=== PATIENT | male | born 1985 | race Caucasian/White ===

== ENCOUNTER → 2022-04-24 14:31 | Outpatient (BNVA) | payer SELFPAY | PROVIDERS: PCP Nurse Practitioner Family; Visit Provider Physician Assistant Medical | DX: Z02.79 Encounter for issue of other medical certificate (principal) ==

== ENCOUNTER 2023-06-23 21:33 | Emergency (ER) | payer OTHER, SELFPAY ==
[2023-06-23 21:43] VITALS: BP 152/83; PULSE 93; RESP 17; TEMP 36.6; O2SAT 98
[2023-06-23 22:04] VITALS: BP 147/87; PULSE 90; O2SAT 97; BMI 22.5
--- NOTE | 2023-06-23 22:06 | ED.OVERDOSE ---
HPI - Overdose General Chief Complaint: Overdose Stated Complaint: VOMITING OPIOID INTOX Time Seen by Provider: 06/23/23 21:47 Source: patient Mode of arrival: EMS Limitations: no limitations History of Present Illness HPI Narrative: Patient brought by EMS for possible overdose patient does not take drugs took half tablet of Percocet from the street was feeling diaphoretic and pale and vomiting no shortness of breath no loss of consciousness no abdominal pain Related Data Allergies Allergy/AdvReac Type Severity Reaction Status Date / Time No Known Allergies Allergy Verified 06/23/23 22:23 Review of Systems Review of Systems: Yes all other systems are reviewed and are negative [facility] Social History Social History Advance Directives: No Advance Directives Information Provided: No Physical Exam Vital Signs: Vital Signs: Last Vital Signs Temp 97.8 F 06/23/23 21:43 Pulse 93 06/23/23 21:43 Resp 17 06/23/23 21:43 BP 152/83 H 06/23/23 21:43 Pulse Ox 98 06/23/23 21:43 O2 Del Method Room Air 06/23/23 21:43 BMI result Body Mass Index 22.5 Appearance: Alert. Oriented X3. No acute distress. Eyes: PERRLA, No Nystagmus ENT: Pharynx normal. Oral Mucosa moist Neck: Normal inspection. Neck supple. CVS: Normal heart rate and rhythm. Pulses normal. Respiratory: No respiratory distress. Equal air entry bilateral, no wheezing/rales/rhonchi Abdomen: Soft and nontender. Bowel sounds are present, no mass palpable, no CVA tenderness Skin: Skin warm and dry. Normal skin color. Normal skin turgor. Extremities: No lower extremity edema. No calf tenderness Neuro: Oriented X 3. No motor deficit. No sensory deficit.No cerebellar signs , cranial nerves II-XII intact Medications Administered Discontinued Medications Generic Name Dose Route Start Last Admin Trade Name Freq PRN Reason Stop Dose Admin Ondansetron HCl 4 mg 06/23/23 22:23 06/23/23 23:02 Ondansetron Odt 4 Mg Tab.Rapdis TRANSLINGU 06/23/23 22:24 4 mg ONCE ONE Administration Medical Decision Making Medical Decision Making MDM Narrative: Patient feeling much better after taking p.o. fluids will discharge patient home does not want to give us urine sample Discharge Plan Discharge Clinical Impression: Poisoning by opiate or related narcotic Patient Disposition: Home, Self-Care Instructions: Opioid Use Disorder (ED) Additional Instructions: Stop using Percocet and opiates Follow-up with detox Interventions: ED Discharge Assessment Last Done: 06/23/23 23:33 Discharge Date/Time: 06/23/23 23:33
[2023-06-23] MEDS: Ondansetron ODT 4 MG TAB.RAPDIS TRANSLINGU (23:02)
== END 2023-06-23 23:33 | disposition home or self-care (01) ==
PROVIDERS: Emergency Provider Internal Medicine
DX: T40.2X1A Poisoning by other opioids, accidental (unintentional), initial encounter (principal); Y92.9 Unspecified place or not applicable
CPT/HCPCS: 99282; 99283

== ENCOUNTER 2024-04-13 22:55 | Emergency (ER) | payer OTHER, SELFPAY ==
[2024-04-13 22:59] VITALS: BP 131/86; PULSE 73; RESP 18; TEMP 36.1; O2SAT 100; BMI 25.0
[2024-04-14] MEDS: Lidocaine HCl 1%/Epi 1:100,000 10 ML VIAL INFILTRATI (00:22)
--- NOTE | 2024-04-14 00:44 | ED.GENADULT ---
HPI - General Adult General Chief complaint: Fall Stated complaint: head lac s/p fall Time Seen by Provider: 04/14/24 00:10 Source: patient, RN notes reviewed and old records reviewed Mode of arrival: ambulatory Limitations: no limitations History of Present Illness ED Provider: Mikel HPI narrative: 38-year-old male presents for evaluation of a facial laceration. Patient reports that he tripped over a piece of wood in his garage. He is not sure if he hit his head on the piece of wood or on the concrete floor He sustained a laceration above his right eyebrow There was no loss of consciousness. The patient denies any pain except for mild pain the area of the laceration Denies any neck pain, chest pain. And denies any blurry vision, lightheadedness, dizziness, nausea vomiting No other complaints or concerns Related Data Allergies Allergy/AdvReac Type Severity Reaction Status Date / Time No Known Allergies Allergy Verified 04/13/24 23:02 Review of Systems Constitutional: Constitutional: Denies body ache(s), Denies chills and Denies headache(s) Eyes: Eyes: Denies blurry vision ENT: Denies headache(s) Cardiovascular: Cardiovascular: Denies chest pain, Denies syncope and Denies dyspnea Respiratory: Respiratory: Denies dyspnea Integumentary/Breasts: Skin/Breast: Reports wounds Neurologic: Denies syncope and Denies headache(s) PMFSH Social History Social History Advance Directives: No Advance Directives Information Provided: No Do you have a plan to hurt others: No Plan Physical Exam ED Vital Signs: Vital Signs - 24 hr 04/13/24 22:59 Temperature 97 F Pulse Rate 73 Respiratory Rate 18 Blood Pressure 131/86 Pulse Oximetry 100 Oxygen Delivery Method Room Air BMI result Body Mass Index 25.0 Const General: healthy appearing, comfortable, no acute distress, alert and awake Nutritional Appearance: well nourished Orientation/consciousness: patient oriented x3 Eyes Eyelids: Yes eyelids normal Conjunctivae: conjunctivae normal Sclerae: sclerae normal Corneas: corneas normal Pupils: Equal, round and reactive pupils present EOM: EOMs intact bilaterally Resp Effort & Inspection: normal respiratory effort, able to speak in complete sentences and not labored Skin Other: You 0.5 cm linear laceration above the right eyebrow. There is some fatty tissue exposed. There is minimal active bleeding General skin exam: elasticity normal Neuro General: patient oriented x3 Cranial nerves: Yes CN's II-XII intact bilaterally, Yes Equal, round and reactive pupils present and Yes Bilaterally intact EOM present Cognition (Neuro): normal cognition Extrem Other: Moving all extremities well without any obvious deformities Medications Administered Discontinued Medications Generic Name Dose Route Start Last Admin Trade Name Carlene PRN Reason Stop Dose Admin Lidocaine/Epinephrine 10 ml 04/14/24 00:19 04/14/24 00:22 Lidocaine Hcl 1%/Epi 1:100,000 10 Ml Vial INFILTRATI 04/14/24 00:20 10 ml ONCE ONE Administration Procedures Laceration Laceration 1: Site: face Side (If applicable): right (Eyebrow) Size (cm): 2.5 Description: linear Depth: simple, single layer Local Anesthetic: lidocaine 1% and with epi Amount of anesthesia used (mL): 2 Pre-repair: wound explored, irrigated extensively and deep structures intact Skin layer closed with: nylon Size (cm): 6-0 Number of sutures: 4 Technique: simple, interrupted Medical Decision Making Medical Decision Making MDM Narrative: 38-year-old male presents for evaluation of facial laceration. This happened with blunt force trauma to the head. Did have been 5 hours prior to my evaluation. He has no neuro deficits, is suggestive of a traumatic brain injury. I discussed CT brain with the patient he declines which I feel is appropriate given the above reasons. He has not anticoagulated his responsible adult. See procedure note for wound repair, but CT imaging was ultimately deferred. He has no neck pain or C-spine tenderness. Patient declined a tetanus booster today Differential Diagnosis Differential Diagnoses: The differential diagnosis associated with the presentation includes Facial laceration Concussion Head trauma Intracranial hemorrhage Tests considered The following testing was considered but not selected: Consider CT brain and C-spine but ultimately the patient is not symptomatic of a TBI or significant cervical spine injury. These were deferred after shared decision-making Discharge Plan Discharge Clinical Impression: Facial laceration Patient Disposition: Home, Self-Care Instructions: Laceration (ED) Additional Instructions: You had 4 sutures placed today. These can be removed in 5-7 days. Keep the area clean and dry. Use ibuprofen/Tylenol for any pain Follow-up with your primary doctor Return for new or worsening symptoms Print Language: Tamazight
[2024-04-14 01:10] VITALS: BP 120/80; PULSE 68; RESP 16; TEMP 36.6; O2SAT 97
== END 2024-04-14 01:11 | disposition home or self-care (01) ==
PROVIDERS: Emergency Provider Emergency Medicine
DX: S01.111A Laceration without foreign body of right eyelid and periocular area, initial encounter (principal); W01.198A Fall on same level from slipping, tripping and stumbling with subsequent striking against other object, initial encounter; Y93.9 Activity, unspecified; Y92.015 Private garage of single-family (private) house as the place of occurrence of the external cause; Y99.9 Unspecified external cause status
CPT/HCPCS: 12011; 99282; 99284

== ENCOUNTER 2024-04-20 21:35 | Emergency (ER) | payer OTHER, SELFPAY ==
[2024-04-20 21:52] VITALS: BP 120/68; PULSE 89; RESP 17; TEMP 36.8; O2SAT 96; BMI 25.0
[2024-04-20 23:43] VITALS: BP 121/69; PULSE 68; RESP 20; TEMP 36.8; O2SAT 96
--- NOTE | 2024-04-21 00:44 | ED.GENADULT ---
HPI - General Adult General Chief complaint: Recheck/Abnormal Lab/Rx Stated complaint: needs stitches removed Time Seen by Provider: 04/21/24 00:22 Source: patient, RN notes reviewed and old records reviewed Mode of arrival: ambulatory Limitations: no limitations History of Present Illness ED Provider: Mikel HPI narrative: 38-year-old male presents for evaluation of suture removal. He was seen here 1 week ago and had 4 sutures placed to the left side of his forehead above his eyebrow. He denies any pain. He reports that the wound healed well Related Data Allergies Allergy/AdvReac Type Severity Reaction Status Date / Time No Known Allergies Allergy Verified 04/20/24 21:53 [facility] Social History Social History Advance Directives: No Advance Directives Information Provided: Yes Do you have a plan to hurt others: No Plan Physical Exam ED Vital Signs: Vital Signs - 24 hr 04/20/24 21:52 04/20/24 23:43 04/21/24 00:59 Temperature 98.2 F 98.3 F 0 F L Pulse Rate 89 68 0 L Respiratory Rate 17 20 0 L Blood Pressure 120/68 121/69 0/0 L Pulse Oximetry 96 96 0 L Oxygen Delivery Method Room Air Room Air BMI result Body Mass Index 25.0 Const General: healthy appearing, comfortable, no acute distress, alert and awake Nutritional Appearance: well nourished Orientation/consciousness: patient oriented x3 Eyes Eyelids: Yes eyelids normal Conjunctivae: conjunctivae normal Sclerae: sclerae normal Corneas: corneas normal Pupils: Equal, round and reactive pupils present EOM: EOMs intact bilaterally Skin Other: Healing wound to the right forehead. There are 4 intact sutures. There is a scab covering the area. No active bleeding, no purulence, no erythema General skin exam: no rashes or lesions noted Neuro General: patient oriented x3 Cranial nerves: Yes Equal, round and reactive pupils present and Yes Bilaterally intact EOM present Cognition (Neuro): normal cognition Medical Decision Making Medical Decision Making [facility] Narrative: 38-year-old male presents for evaluation of suture removal. Four sutures were easily removed. There was no wound dehiscence. Differential Diagnosis Differential Diagnoses: The differential diagnosis associated with the presentation includes Wound check Suture removal Laceration Acute wound Discharge Plan Discharge Clinical Impression: Encounter for removal of sutures Patient Disposition: Home, Self-Care Instructions: Stitches Removal (ED) Additional Instructions: You had 4 sutures removed today. You may apply topical antibiotic as needed Follow-up with your primary doctor Interventions: ED Discharge Assessment Last Done: 04/21/24 00:59 Discharge Date/Time: 04/21/24 01:00 Print Language: Estonian
[2024-04-21 00:59] VITALS: BP 0/0; PULSE 0; RESP 0; TEMP -17.7; TEMP 0; O2SAT 0
== END 2024-04-21 01:00 | disposition home or self-care (01) ==
PROVIDERS: Emergency Provider Emergency Medicine Emergency Medical Services
DX: Z48.02 Encounter for removal of sutures (principal); S01.81XD Laceration without foreign body of other part of head, subsequent encounter; X58.XXXD Exposure to other specified factors, subsequent encounter
CPT/HCPCS: 99283

== ENCOUNTER 2025-08-18 11:58 | Emergency (ER) | payer OTHER, MEDICAID, SELFPAY ==
--- NOTE | ~2025-08-18 | XR_ITS ---
EXAMINATION: XR LUMBOSACRAL SPINE CLINICAL INFORMATION: trauma, low back pain COMPARISON: None available. TECHNIQUE: AP and lateral views FINDINGS: No acute cortical disruption or malalignment. Endplate sclerosis at L4-5, L5-S1 and to a lesser extent L3-4. Facet joint hypertrophy at L5-S1. Small marginal osteophyte formation L3-4, L4-5 and L5-S1. S-shaped curvature of the lumbar spine. No lytic or blastic lesions. XR/XR lumbar spine 2-3V IMPRESSION: Multilevel spondylosis without acute fracture or trauma-related listhesis. Electronically signed by: Jesús Farrell MD 08/18/2025 03:37 PM EDT
--- NOTE | ~2025-08-18 | XR_ITS ---
EXAMINATION: XR ELBOW, RIGHT CLINICAL INFORMATION: trauma COMPARISON: None available. TECHNIQUE: AP, lateral, and oblique views of the right elbow. FINDINGS: There is an oblique intra-articular fracture of the radial head which appears nondisplaced. There is no dislocation. Joint spaces and alignment are normal. There is a joint effusion. No discrete soft tissue abnormalities. XR/XR elbow RT min 3V IMPRESSION: 1. Oblique nondisplaced intra-articular radial head fracture. 2. Joint effusion. Electronically signed by: Joseph Walden MD 08/18/2025 03:36 PM EDT
--- NOTE | ~2025-08-18 | XR_ITS ---
EXAMINATION: XR HAND, RIGHT CLINICAL INFORMATION: fall, pain COMPARISON: None available. TECHNIQUE: PA, lateral, and oblique views of the right hand. FINDINGS: Small marginal osteophytes are present at the MCP joints of the third and fourth digits on the ulnar side. No fracture line is identified. Scapholunate interval measures nearly 4 mm. XR/XR hand RT min 3V IMPRESSION: Scapholunate widening raises question of scapholunate ligament tear. 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 No fracture is visible. Electronically signed by: Jair Self MD 08/18/2025 12:54 PM EDT
--- NOTE | ~2025-08-18 | XR_ITS ---
EXAMINATION: XR FOREARM, RIGHT CLINICAL INFORMATION: fall, pain COMPARISON: None available. TECHNIQUE: AP and lateral views of the right forearm were obtained. FINDINGS: The bones and soft tissues are normal. No fracture. Imaged portions of the elbow and wrist are unremarkable. XR/XR forearm RT 2V IMPRESSION: Unremarkable right forearm. Electronically signed by: Jair Self MD 08/18/2025 12:52 PM EDT
--- NOTE | ~2025-08-18 | XR_ITS ---
EXAMINATION: XR WRIST, RIGHT CLINICAL INFORMATION: pain, poss abn on hand x-ray COMPARISON: Hand x-ray from the same day TECHNIQUE: PA, lateral, and oblique views of the right wrist. FINDINGS: There is slight widening of the scapholunate interval measuring 4 mm. This is similar to hand x-ray from earlier the same day. No evidence of perilunate subluxation or dislocation. Ossification seen projecting over the soft tissues of the dorsal wrist on the lateral view is questionable for trauma, uncertain age. There may be soft tissue swelling over the dorsal wrist. Probable old healed fifth metacarpal shaft fracture. XR/XR wrist RT min 3V IMPRESSION: Slightly widened scapholunate distance similar to wrist x-ray from earlier the same day. No evidence of perilunate subluxation or dislocation. Question trauma to the dorsal wrist, uncertain age. Clinical correlation recommended. Findings could be better evaluated with cross-sectional imaging if clinically warranted. Electronically signed by: Yelena Gallagher MD 08/18/2025 03:47 PM EDT
--- NOTE | ~2025-08-18 | XR_ITS ---
EXAMINATION: XR HUMERUS, RIGHT CLINICAL INFORMATION: fall, pain COMPARISON: None available. TECHNIQUE: AP and lateral views of the right humerus. FINDINGS: The bones and soft tissues are normal. No fracture. Imaged portions of the shoulder and elbow are unremarkable. XR/XR humerus RT IMPRESSION: Unremarkable right humerus. Electronically signed by: Jair Self MD 08/18/2025 12:48 PM EDT
--- NOTE | ~2025-08-18 | XR_ITS ---
EXAMINATION: XR HIP, RIGHT CLINICAL INFORMATION: pain after fall COMPARISON: None available. TECHNIQUE: AP pelvis. AP and oblique views of the right hip. FINDINGS: Bony pelvis is intact. No acute cortical disruption or malalignment, right coxofemoral joint. Mild sclerosis along the articular surface of the symphysis pubis. No lytic or blastic lesions. No soft tissue calcifications. XR/XR hip RT w PEL1V IMPRESSION: No acute fracture or dislocation, right hip. No acute fracture, bony pelvis. Electronically signed by: Jesús Farrell MD 08/18/2025 12:52 PM EDT
--- NOTE | 2025-08-18 12:09 | ED_ITS ---
HPI - General Adult General Chief complaint: Fall Stated complaint: Back Pain Work Injury 08/18/25 Time Seen by Provider: 08/18/25 14:23 History of Present Illness ED Provider: Ivy SCHMITT narrative: The patient is a 39-year-old male who is generally healthy. He was at work today. He was on a elevated platform on a ladder. He fell off the ladder, approximately 8 ft, landing on his right side. He did not his head. He and a primarily on the right arm and right hip. He has pain in his right arm, the right hip, in the right lower back. His pain is worst in the right elbow. No numbness or tingling in the hand. Related Data Previous Rx's ?Medication ?Instructions ?Recorded acetaminophen 500 mg capsule 1,000 mg (2 x 500 mg) PO Q8H PRN 08/18/25 fever or pain #14 caps ibuprofen 400 mg tablet 400 mg PO Q6H PRN pain #14 t abs 08/18/25 oxycodone 5 mg tablet 5 mg PO Q6H PRN pain #10 tab s 08/18/25 Allergies Allergy/AdvReac Type Severity Reaction Status Date / Time No Known Allergies Allergy Verified 08/18/25 12:11 Review of Systems Review of Systems: Yes all other systems are reviewed and are negative PMFSH Social History Social History Advance Directives: No Advance Directives Information Provided: No Physical Exam ED Vital Signs: Vital Signs - 24 hr 08/18/25 12:11 08/18/25 15:38 Temperature 97.6 F 98.6 F Pulse Rate 78 79 Respiratory Rate 16 18 Blood Pressure 142/68 H 126/69 Pulse Oximetry 98 99 Oxygen Delivery Method Room Air Room Air BMI result Body Mass Index 21.1 Const Other: The patient is a slim 39-year-old male who looks as though he is ordinarily reasonably healthy but who looks acutely uncomfortable. HENMT Other: No signs of trauma to the head or the face Eyes Other: No sign of trauma to the eyes Neck Other: No posterior neck pain or tenderness. No pain with range of motion of the neck. C-spine is clinically clear. Resp Effort & Inspection: normal respiratory effort Auscultation: clear to auscultation bilaterally Cardio Rate: regular rate Rhythm: regular rhythm Heart sounds: S1 normal heart sound present and S2 normal heart sound present GI Other: Abdomen is soft and nontender Back/Spine/Pelvis Other: The patient has diffuse tenderness in the lower back Skin Other: Skin is intact. Possibly some minimal swelling in the region of the right elbow. Neuro Other: The patient is awake and alert with a normal level of consciousness. Cranial nerves 2-12 are intact. He has intact strength and sensation in his extremities. Extrem Other: The patient has a lot of tenderness in the region of the right elbow without gross deformity. He has a limited range of motion of the elbow although I can pronate and supinate the hand without seeming to cause a lot of discomfort. The patient is not have any snuffbox tenderness in the right hand. He does not really have any significant wrist tenderness at all and he can put the right wrist through a good range of motion. The patient has a lot of tenderness in the region of the right hip but can put the hip through a reasonably good range of motion. No deformity. Both the hands and the feet are neurovascularly intact. Course Course Course Narrative: This is a rapid medical exam performed by Niles Walls NP: Additional HPI, ROS, PE not included below will be deferred to primary provider. Patient is a 39y/o M presenting with complaint of right arm and hip pain after a fall prior to arrival. States he was 8' up on a platform, went to step off onto a ladder and it wasn't there. Denies head strike or LOC, not anticoagulated. No c-spine tenderness. Plan: imaging Medications Administered Discontinued Medications Generic Name Dose Route Start Last Admin Trade Name Carlene PRN Reason Stop Dose Admin Acetaminophen 975 mg 08/18/25 13:33 08/18/25 13:46 Acetaminophen 325 Mg Tablet PO 08/18/25 13:34 975 mg ONCE ONE Administration Ketorolac Tromethamine 30 mg 08/18/25 14:38 08/18/25 14:52 Ketorolac Tromethamine 30 Mg/Ml Vial IM 08/18/25 14:39 30 mg ONCE ONE Administration Morphine Sulfate 8 mg 08/18/25 14:57 08/18/25 15:41 Morphine Sulfate 10 Mg/Ml Cartridge IM 08/18/25 14:58 8 mg ONCE ONE Administration Protocol Medical Decision Making Medical Decision Making MDM Narrative: The patient is a 39-year-old male who presents to the emergency room for evaluation of injuries sustained in a fall. He landed primarily on his right side. There was no head injury. He was able to drive himself to the hospital. His chief complaint seems to be right elbow pain. Secondary pains are low back pain and right hip pain. He is neurovascularly intact. X-rays at triage included a right humerus x-ray and a right forearm x-ray and a right hand x-ray. I felt there was a suggestion of an anterior fat pad sign on the forearm x-ray and so ordered a formal elbow x-ray. The formal elbow x-ray shows a nondisplaced radial head fracture. This is a closed fracture. The hand x-ray suggested a possible scapholunate dissociation. Therefore a wrist x-ray was also done. The wrist x-ray is similar. I examined the wrist several times. He really does not seem to have significant tenderness and I do not think there is an acute injury. He reports that he did have an injury to his wrist remotely. I suspect the x-ray findings are probably related to an old injury rather than an acute injury. There was no snuffbox tenderness. The patient was ambulatory despite his hip and back pain. No fractures of the lumbar spine. The patient was given a sling to address his right radial head fracture. He will be given a work note. He will be advised to follow up with Orthopedics. He will be given prescriptions for acetaminophen, ibuprofen, and oxycodone as needed for pain. Discharge Plan Discharge Clinical Impression: Right radial head fracture, Low back strain, Contusion of right hip Patient Disposition: Home, Self-Care Instructions: Elbow Fracture (ED) Additional Instructions: You have a nondisplaced fracture of the bone in the region of your right elbow. You have what is called a nondisplaced radial head fracture. Fractures of this kind usually heal well without surgery or other specific treatment. The most important treatment is simply resting the elbow. You has been given a sling to help keep the elbow resting. You may use ice to the elbow to help with the pain and swelling. If you are able to try to keep the elbow elevated. You may use pillows when sitting or lying down to help keep the elbow elevated. You have prescriptions for ibuprofen and acetaminophen that you may use as needed for pain. If necessary you may also use the prescribed oxycodone. Do not drive on oxycodone. It will make you drowsy. Please contact the orthopedic office on Thursday morning for a follow up appointment. Return to the emergency room if any concerning new symptoms develop. Prescriptions: New acetaminophen 500 mg capsule 1,000 mg PO Q8H PRN (Reason: fever or pain) Qty: 14 0RF ibuprofen 400 mg tablet 400 mg PO Q6H PRN (Reason: pain) Qty: 14 0RF oxycodone 5 mg tablet 5 mg PO Q6H PRN (Reason: pain) Qty: 10 0RF Rx Instructions: Partial Fill upon patient request. Referrals: [facility] [Provider Group] Stand Alone Forms: Work/School Release Print Language: Maltese
[2025-08-18 12:11] VITALS: BP 142/68; PULSE 78; RESP 16; TEMP 36.4; O2SAT 98; BMI 21.1
--- OUTSIDE RECORDS SUMMARY | 2025-08-18 14:06 | XMS_ITS | Clinical Summary ---
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 Name Role Phone Unavailable Primary Care Provider Unavailabl e Social History Tobacco Use Types Packs/Day Years Used Date Smoking Tobacco: Never Assessed Sex and Gender Information Value Date Recorded Sex Assigned at Male 09/15/2022 10:40 AM EDT Legal Sex Male 10:40 AM EDT Gender Identity Male 09/15/2022 10:40 AM EDT Sexual Orientation Don't know 09/15/2022 10 :40 AM EDT Plan of Treatment Health Maintenance Due Date Last Done Comments Depression Screening 1983 Lipid Panel 1983 Disability Screening 1983 Alcohol/Substance Use Screening 1995 Tobacco Screening 1995 Family Planning (PISQ) 1998 HPV Vaccines (1 - Male 3-dos e series) 1998 DTaP/Tdap/Td Vaccines (1 - Tdap) 2002 Hepatitis B Vaccines (1 of 3 - 19+ 3-dose series) 2002 COVID-19 Vaccine ( - 2023-2 5 season) 2025 Influenza Vaccine (#1) 2025 Zoster Vaccines (1 of 2) 2033 RSV Patients and Pa tients Aged 60 years or older (1 - 1-dose 75+ series) 2058 HIB Vaccines Aged Out No longer eligi ble based on patient's age to complete this topic Hepatitis A Vaccines Aged Out No long er eligible based on patient's age to complete this topic IPV Vaccines Aged Out No longer eligi ble based on patient's age to complete this topic Meningococcal B Vaccine Aged Out No l onger eligible based on patient's age to complete this topic Meningococcal Vaccine Aged Out No jalil patricia eligible based on patient's age to complete this topic Pneumococcal Vaccine: Pediat rics (0 to 5 Years) and At-Risk Patients (6 to 49) Years Aged Out No longer eligible b ased on patient's age to complete this topic RSV under 20 months Aged Out No longe r eligible based on patient's age to complete this topic Rotavirus Vaccines Aged Out No longer eligible based on patient's age to complete this topic
--- OUTSIDE RECORDS SUMMARY | 2025-08-18 14:06 | XMS_ITS | Encounter Summary ---
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 Stenciler Name Role Phone Unavailable Primary Care Provider Unavailabl e Encounter Details Date Type Department Care Team (Latest Contact Info) Description 05/08/2022 Abstract [facility] CONVERSIONS Dental, Provider, DDS Social History Tobacco Use Types Packs/Day Years Used Date Smoking Tobacco: Never Assessed Sex and Gender Information Value Date Recorded Sex Assigned at Male 09/15/2022 10:40 AM EDT Legal Sex Male 10:40 AM EDT Gender Identity Male 09/15/2022 10:40 AM EDT Sexual Orientation Don't know 09/15/2022 10 :40 AM EDT documented as of this encounter Plan of Treatment Not on file documented as of this encounter Visit Diagnoses Not on filedocumented in this encounter
[2025-08-18 15:38] VITALS: BP 126/69; PULSE 79; RESP 18; TEMP 37; O2SAT 99
[2025-08-18 17:00] VITALS: BP 126/69; PULSE 79; RESP 18; TEMP 37; O2SAT 99
== END 2025-08-18 17:00 | disposition home or self-care (01) ==
PROVIDERS: Emergency Provider Emergency Medicine
DX: S52.121A Displaced fracture of head of right radius, initial encounter for closed fracture (principal); S70.01XA Contusion of right hip, initial encounter; M25.531 Pain in right wrist; M54.50 Low back pain, unspecified; M25.521 Pain in right elbow; M25.551 Pain in right hip; X50.1XXA Overexertion from prolonged static or awkward postures, initial encounter; W11.XXXA Fall on and from ladder, initial encounter; Y93.9 Activity, unspecified; Y92.9 Unspecified place or not applicable; Y99.0 Civilian activity done for income or pay
CPT/HCPCS: 72100; 73060; 73080; 73090; 73110; 73130; 73502; 96372; 99284; J1885; J2270

== ENCOUNTER → 2025-08-18 12:11 | Outpatient (BNV) | payer OTHER, SELFPAY | PROVIDERS: Visit Provider Radiology Diagnostic Radiology | DX: M54.50 Low back pain, unspecified (principal); M47.817 Spondylosis without myelopathy or radiculopathy, lumbosacral region; M25.551 Pain in right hip; S52.124A Nondisplaced fracture of head of right radius, initial encounter for closed fracture; M25.421 Effusion, right elbow; M25.531 Pain in right wrist; M79.641 Pain in right hand; M79.621 Pain in right upper arm; M79.631 Pain in right forearm; W19.XXXA Unspecified fall, initial encounter | CPT/HCPCS: 72100; 73060; 73080; 73090; 73110; 73130; 73502 ==

== ENCOUNTER 2025-09-01 08:08 | Outpatient (REF) | payer OTHER, MEDICAID, SELFPAY ==
--- NOTE | ~2025-09-01 | XR_ITS ---
CLINICAL HISTORY: M25.551 - Pain in right hip 3 view, pelvis and right hip Comparison: CR/SR - XR HIP 1 VIEW RIGHT WITH PELVIS - 08/18/25 12:36 EDT Findings: No acute fracture or dislocation. No significant arthritic change. The soft tissues are unremarkable. IMPRESSION: No acute findings. This document has been electronically signed by: Theo Sánchez MD on 09/03/2025 19:05:52
--- NOTE | ~2025-09-01 | XR_ITS ---
CLINICAL HISTORY: M79.641 - Pain in right hand --- Additional Notes or Special Instructions: W pencil clinical liaison view please 4 view right wrist Comparison: CR/SR - XR WRIST 3 OR MORE VIEWS RIGHT - 08/18/25 15:14 EDT Findings: No fractures or dislocations. No significant arthritic change or erosions. No radiopaque foreign body. IMPRESSION: 1. No acute fracture or dislocation. 2. No significant arthritic change or erosions. 3. No radiopaque foreign body. This document has been electronically signed by: Theo Sánchez MD on 09/03/2025 19:06:38
--- NOTE | ~2025-09-01 | XR_ITS ---
CLINICAL HISTORY: M25.521 - Pain in right elbow 3 view right elbow Comparison: CR/RI/SR - XR ELBOW 3 VIEWS RIGHT - 08/18/25 15:08 EDT Findings: Radial head longitudinal fracture extending from the radial articular surface to the metaphysis. No significant loss of joint space, osteophytes, or erosions. No joint effusion. No radiopaque foreign body. IMPRESSION: 1. Re-identified Radial head oblique fracture extending from the radial articular surface to the metaphysis. 2. No joint effusion or significant degenerative changes. 3. No radiopaque foreign body. This document has been electronically signed by: Theo Sánchez MD on 09/03/2025 19:05:27
== END 2025-09-01 08:09 | disposition home or self-care (01) ==
LOC: HO.HOSX 08:08
DX: S72.111A Displaced fracture of greater trochanter of right femur, initial encounter for closed fracture (principal); S52.124A Nondisplaced fracture of head of right radius, initial encounter for closed fracture; M25.331 Other instability, right wrist; W17.89XA Other fall from one level to another, initial encounter; Y93.9 Activity, unspecified; Y92.69 Other specified industrial and construction area as the place of occurrence of the external cause; Y99.0 Civilian activity done for income or pay
CPT/HCPCS: 73080; 73110; 73502; 99202

== ENCOUNTER 2025-09-01 09:33 | Outpatient (AMB) | payer OTHER, SELFPAY ==
--- NOTE | 2025-09-01 09:59 | A.OFFVIS_ITS ---
Vital Signs 09/01/25 10:02 Height 6 ft 1 in Weight 160 lb BMI 21.1 Handedness Right Intake Visit Reasons: RT Schapholunate Inj, RT Rad Head Fx, WC:08/18/25 Intake Note: Noble is a 39 year old right hand dominant male, new patient, who presents today for a Fracture Care visit status post work-related injury Right Schapholunate Injury & Right Radial Head Fracture, DOI: 08/18/25. Patient was seen at [facility] on 08/18/25 after falling approximately 8 ft. off an elevated platform on a ladder, landing on the right side and on the front side as well. After his accident he says he spent roughly 9 days in bed with ice and a heating pad with minimal relief. He is complaining of right elbow, right shoulder, and right hip pain. Right elbow is experiencing sharp pain, the right shoulder is more of a dull pain. Right hip he is expressing a constant pain with ambulation and prologned standing. He also feels is with incorrect movement. Says he gets a severe sharp pain that immobilizes him. He feels sharp pain and swelling in his groin area as well. Reports when he sits it feels like a wallet is in his pocket the entire time. He says sometimes this turns dull but is constant. He was prescribed Tylenol, ibuprofen, and oxycodone. He has completed his course of oxycodone. He says the ibupforn and Tylenol gives minimal pain. Today he reports he feels slightly better in the elbow and shoulder except when he moves the arm around. Numbness and tingling in the right hand that comes and goes. He was provided a work release form from the ED stating This person has a broken bone in his right elbow that will take several weeks to heal. He may be capable of a supervisory role prior to full healing of his elbow, however any use of the right arm will need to be determined by follow up with Orthopedics. I expect he will be unable to use this arm significantly for at least 4 weeks. This caused the job to ask him to still come in, he felt uncomfortable but felt he still had to make it into work. Allergies No Known Allergies Allergy (Verified 09/01/25 10:03) HPI HPI RT Schapholunate Inj, RT Rad Head Fx, WC:08/18/25: Details: Noble is a 39 year old right hand dominant male, new patient, who presents today for a Fracture Care visit status post work-related injury Right Schapholunate Injury & Right Radial Head Fracture, DOI: 08/18/25. Patient was seen at [facility] on 08/18/25 after falling approximately 8 ft. off an elevated platform on a ladder, landing on the right side and on the front side as well. After his accident he says he spent roughly 9 days in bed with ice and a heating pad with minimal relief. He is complaining of right elbow, right shoulder, and right hip pain. Right elbow is experiencing sharp pain, the right shoulder is more of a dull pain. Right hip he is expressing a constant pain with ambulation and prologned standing. He also feels is with incorrect movement. Says he gets a severe sharp pain that immobilizes him. The patient states that this pain is pr imarily in the right groin area, denies much pain in the lateral aspect of the right hip. He feels sharp pain and swelling in his groin area as well. Reports when he sits it feels like a wallet is in his pocket the entire time. He says sometimes this turns dull but is constant. He was prescribed Tylenol, ibuprofen, and oxycodone. He has completed his course of oxycodone. He says the ibupforn an d Tylenol gives minimal pain. Today he reports he feels slightly better in the elbow and shoulder except when he moves the arm around. Patient reports that he has largely been bed-bound since injury, has been limiting weight-bearing in the right leg as much as possible since date of injury. He was provided a work release form from the ED stating This person has a broken bone in his right elbow that will take several weeks to heal. He may be capable of a supervisory role prior to full healing of his elbow, however any use of the right arm will need to be determined by follow up with Orthopedics. I expect he will be unable to use this arm significantly for at least 4 weeks. This caused the job to ask him to still come in, he felt uncomfortable but felt he still had to make it into work. While at work, the patient reported a significant increase in the pain in his right hip, and states that he was only able to go into work for 2 days prior to needing to stay home because of pain. 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 Review of Systems Const All systems reviewed & are unremarkable except as noted in HPI and below Physical Exam Vital Signs: BMI result Body Mass Index 21.1 Extrem Other: Patient's right wrist, elbow, hip normal to inspection No erythema, ecchymosis, edema noted No lacerations, abrasions, open areas No evidence of infection Patient reports minimal tenderness to palpation of the lateral aspect of the right hip Patient reports mild to moderate tenderness to palpation of the right elbow over the radial head Patient reports moderate to severe tenderness to palpation of the right wrist over the scapholunate interval Patient is able to straight leg raise the right lower extremity off of the bed in an extended position, but does have significant discomfort in the groin area Patient is able to flex the right elbow to approximately 90 degrees and extend fully with some discomfort Pronation and supination of the right forearm and wrist full and intact Distal sensation intact Capillary refill brisk Results Reviewed Results Reviewed: X-rays obtained in the office today and independently reviewed by me, David Lindsay PA-C, demonstrate nondisplaced intra-articular fracture of the right radial head, widening of the scapholunate interval of the right wrist concerning for scapholunate ligament tear, as well as an area of lucency of the greater trochanter that appears to extend up towards the femoral neck concerning for nondisplaced right greater trochanteric fracture. Assessment & Plan Assessment & Plan (1) Acute right hip pain: Code(s): M25.551 - Pain in right hip Category: Medical (2) Scapholunate dissociation of right wrist: Code(s): M25.331 - Other instability, right wrist Category: Medical (3) Fracture of greater trochanter of right femur: Code(s): S72.111A - Displaced fracture of greater trochanter of right femur, initial encounter for closed fracture Category: Medical (4) Right radial head fracture: Code(s): S52.121A - Displaced fracture of head of right radius, initial encounter for closed fracture Category: Medical Plan 1. Nondisplaced right greater trochanteric fracture due to questionable area of lucency on x-ray Date of injury 08/18/2025 Patient is educated about this condition Patient is educated about the typical recovery course At this time, stat CT scan is ordered to assess for definitive fracture in his region Patient will need to be toe-touch weight-bearing or nonweightbearing on the right lower extremity pending results of the CT scan Therefore, both crutches and a wheelchair are ordered for the patient and are absolutely medically necessary due to ipsilateral upper extremity injuries and therefore contraindication to long-term crutch use Patient will be held out of work pending results of imaging and follow-up Patient understands this is amenable to this plan 2. Scapholunate dissociation of the right wrist concerning for acute scapholunate ligament tear Date of injury 08/18/2025 Patient is educated about this condition Patient is educated about the typical treatment course At this time, stat MRI is ordered to assess the soft tissue structures of the right wrist and determine definitively if the scapholunate ligament is torn Patient is provided with a Velcro wrist splint to be worn like a cast except for bathing in order to stabilize the wrist in the setting of the injury Nonweightbearing on right upper extremity pending results of imaging Patient is educated that if the imaging does come back positive for an acute scapholunate ligament tear, the recommendation will be surgical intervention Patient understands this and is amenable to this plan Patient will follow-up after results of both of these imaging modalities, sooner with any acute concerns 3. Right radial head fracture, nondisplaced Date of injury 08/18/2025 Patient is educated about this condition Patient is educated about the typical treatment course At this time, due to the fact that it is already 2 weeks out from injury, he can wear the sling for comfort, however he should come out of it while at rest to work on gentle range of motion of the right elbow Nonweightbearing on right upper extremity due to this injury as well as the potential scapholunate ligament tear Follow-up in 4 weeks for this injury Orders: Orders XR elbow RT min 3V Today M25.521 - Pain in right elbow XR wrist RT w scaphoid Today M79.641 - Pain in right hand XR hip RT min 2V Today M25.551 - Pain in right hip MR wrist RT wo con Today M25.331 - Other instability, right wrist, M25.551 - Pain in right hip CT hip RT wo IV con Today M25.551 - Pain in right hip Medications: New [Wheelchair] As directed 1 ea 0RF Discontinued oxycodone Partial Fill upon patient request. Discontinued Reason: Patient Completed Course 5 mg PO Q6H PRN 10 tabs 0RF pain Coding Level of Care Code New Pt Level 5 (13747) Diagnoses Acute right hip pain M25.551 Scapholunate dissociation of right wrist M25.331 Fracture of greater trochanter of right femur S72.111A Right radial head fracture S52.121A
[2025-09-01 10:02] VITALS: BMI 21.1
--- OUTSIDE RECORDS SUMMARY | 2025-09-01 10:53 | XMS_ITS | Clinical Summary ---
Author Organization [employer] Address [address] [place] [address] [address] [place] [address] Care Team Providers Care Geological E Logger Name Role Phone Unavailable Primary Care Provider [...]
--- OUTSIDE RECORDS SUMMARY | 2025-09-01 10:53 | XMS_ITS | Encounter Summary ---
Author Organization [email or web address] Address [address] [place] [address] [address] [place] [address] Care Team Providers Care Catering Server Name Role Phone Unavailable Primary Care Provider Unavailabl e Encounter Details Date Type Department Care Team (Latest Contact Info) Description 05/08/2022 Abstract [facility] CONVERSIONS Dental, Provider, DDS Social History [...]
== END 2025-09-01 11:43 | disposition home or self-care (01) ==
DX: M25.551 Pain in right hip (principal); M25.331 Other instability, right wrist; S72.111A Displaced fracture of greater trochanter of right femur, initial encounter for closed fracture; S52.121A Displaced fracture of head of right radius, initial encounter for closed fracture
CPT/HCPCS: 99204

== ENCOUNTER → 2025-09-01 09:35 | Outpatient (BNV) | payer OTHER, SELFPAY | PROVIDERS: Visit Provider Radiology Diagnostic Radiology | DX: M25.551 Pain in right hip (principal); S52.121A Displaced fracture of head of right radius, initial encounter for closed fracture; M79.641 Pain in right hand | CPT/HCPCS: 73080; 73110; 73502 ==

== ENCOUNTER 2025-09-09 10:32 | Outpatient (REF) | payer OTHER, SELFPAY ==
--- NOTE | ~2025-09-09 | CT_ITS ---
CLINICAL HISTORY: M25.551 - Pain in right hip --- Additional Notes or Special Instructions: ? greater troch fracture CT right hip without contrast Comparison: None provided Findings: Pelvic contents unremarkable. The examination demonstrates a fracture of the proximal superior pubic ramus. There is a small amount of radiodense material adjacent to the fracture site. If the fracture is acute this could represent acute hemorrhage. I suspect that the fracture is more remote with the radiodensity representing callus formation. IMPRESSION: The examination demonstrates a fracture of the proximal superior pubic ramus. There is a small amount of radiodense material adjacent to the fracture site suggesting that the fracture most suggestive of bony callus formation and a more remote injury. I do not believe it represents acute hemorrhage. This document has been electronically signed by: Alec Rodriguez MD on 09/09/2025 12:44:51
--- OUTSIDE RECORDS SUMMARY | 2025-09-09 10:35 | XMS_ITS | Encounter Summary ---
Author Organization [employer] Address [address] [place] [address] [address] [place] [address] Care Team Providers Care Direct Support Staff Member Name Role Phone Unavailable Primary Care Provider Unavailabl e Encounter Details Date Type Department Care Team (Latest Contact Info) Description 05/08/2022 Abstract [facility] CONVERSIONS Dental, Provider, DDS Social History Tobacco [...]
--- OUTSIDE RECORDS SUMMARY | 2025-09-09 10:35 | XMS_ITS | Clinical Summary ---
Author Organization [employer] Address [address] [place] [address] [address] [place] [address] Care Team Providers Care Cuff Cutter Name Role Phone Unavailable Primary Care Provider [...]
== END 2025-09-09 10:33 | disposition home or self-care (01) ==
LOC: HO.CT 10:32
DX: M25.551 Pain in right hip (principal)
CPT/HCPCS: 73700

== ENCOUNTER → 2025-09-09 10:35 | Outpatient (BNV) | payer OTHER, SELFPAY | PROVIDERS: Visit Provider Radiology Diagnostic Radiology | DX: S32.511D Fracture of superior rim of right pubis, subsequent encounter for fracture with routine healing (principal) | CPT/HCPCS: 73700 ==

== ENCOUNTER → 2025-09-14 19:08 | Outpatient (BNV) | payer OTHER, SELFPAY | PROVIDERS: Visit Provider Radiology Diagnostic Radiology | DX: S62.114A Nondisplaced fracture of triquetrum [cuneiform] bone, right wrist, initial encounter for closed fracture (principal); S56.512A Strain of other extensor muscle, fascia and tendon at forearm level, left arm, initial encounter; M25.431 Effusion, right wrist; M65.849 Other synovitis and tenosynovitis, unspecified hand | CPT/HCPCS: 73221 ==

== ENCOUNTER 2025-09-14 19:17 | Outpatient (REF) | payer OTHER, SELFPAY ==
--- NOTE | ~2025-09-14 | MR_ITS ---
CLINICAL HISTORY: M25.331. pain in right wrist --- Additional Notes or Special Instructions: ?scapholunate ligament tear of R wrist MR right wrist without contrast Comparison: DX - XR WRIST RT W SCAPHOID - 09/01/25 09:35 EDT CR/SR - XR WRIST 3 OR MORE VIEWS RIGHT - 08/18/25 15:14 EDT Findings: There is bone marrow edema in the triquetrum. A triquetral fracture is seen on the prior radiographs. There is edema in the adjacent soft tissues. Bone marrow signal is otherwise normal. The musculature is normal in signal and bulk. Normal vessels. No ulnar variance. The distal radioulnar joint is congruent. There is no carpal instability. Small carpal joint effusion. Moderate-sized distal radioulnar joint effusion. The scapholunate and lunotriquetral ligaments are intact. There is increased signal in the triangular fibrocartilage complex; there is a small amount of fluid and increased signal within the triangular ligament. There is linear increased signal within the extensor carpi ulnaris tendon with increased fluid in the tendon sheath and adjacent edema within the soft tissues. There is increased fluid within the tendon sheaths of extensor digiti minimi, extensor digitorum and indicis, extensor pollicis longus, extensor carpi radialis longus and brevis. Normal carpal tunnel, median nerve, flexor retinaculum, flexor tendons and Guyon canal. There is edema in the subcutaneous fat superficial to the flexor retinaculum. Intact first carpometacarpal, scaphotrapezotrapezoidal and pisiform-triquetral joints. Mild joint space narrowing and osteophytosis of the 1st carpometacarpal joint, degenerative. Impression: Triquetral fracture. Small carpal joint effusion. Moderate-sized distal radioulnar joint effusion. Injury to the triangular fibrocartilage complex, posttraumatic, with a small amount of fluid and sprain versus partial tear of the triangular ligament. Split tear of extensor carpi ulnaris with tenosynovitis. Extensor tendon tenosynovitis, detailed above. This document has been electronically signed by: Nicolasa Lawrence MD on 09/14/2025 21:00:57
== END 2025-09-14 19:18 | disposition home or self-care (01) ==
LOC: HO.MRI 19:17
DX: M25.551 Pain in right hip (principal); M25.331 Other instability, right wrist
CPT/HCPCS: 73221

== ENCOUNTER 2025-10-10 08:53 | Outpatient (AMB) | payer OTHER, SELFPAY ==
--- NOTE | 2025-10-10 09:02 | MHC.OFFVIS ---
Vital Signs 10/10/25 09:03 Height 6 ft 1 in Weight 160 lb BMI 21.1 Handedness Right Intake Visit Reasons: O/V RT wrist mri review Intake Note: Noble is a 39 year old right hand dominant male, who presents today for his follow up visit status post work-related injury Right Schapholunate Injury & Right Radial Head Fracture, DOI: 08/18/25. Patient was seen at [facility] on 08/18/25 after falling approximately 8 ft. off an elevated platform on a ladder, landing on the right side and on the front side as well. Patient last seen with Gagan Hernandez for multiple body parts including right wrist and elbow. Patient is here for his review of his right wrist MRI which was ordered by Gagan Hernandez. Patient reports his right wrist is okay at rest and with his brace on. He expresses pain with flexion and extension, pronation and supination as well. Patient would like to discuss work status and work notes if needed. Allergies No Known Allergies Allergy (Verified 09/01/25 10:03) HPI HPI O/V RT wrist mri review: Details: Noble is a 39 year old right hand dominant man who presents for an MRI review of his right triquetral fracture, radial head fracture, and ECU tendon tear, S/P work injury, DOI: 08/18/25. He fell ~8' off of a ladder at work. He also has a right Trochanter hip fracture, which is being managed by ROXANE Hernandez. He says he is doing better but complains of pain with any wrist ROM. He denies any pain when wearing his brace and when at rest. He also complains of pain in his right elbow & hip with ROM, and denies pain at rest. He says he feels everything is doing good but he is limited in his ROM. 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 He says he was told his work has light duty, but he has not been back to work yet. 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 Review of Systems Const All systems reviewed & are unremarkable except as noted in HPI and below Physical Exam Vital Signs: BMI result Body Mass Index 21.1 Const General: cooperative, healthy appearing and no acute distress Orientation/consciousness: patient oriented x3 HEENT Head: Yes normocephalic and Yes atraumatic Eyes EOM: EOMs intact bilaterally Resp Effort & Inspection: normal respiratory effort and able to speak in complete sentences Cardio Jugular venous distension: no JVD Skin General skin exam: turgor normal Rashes: no rashes Neuro General: patient oriented x3 Extrem Other: Evaluation of Right Upper Extremity: The patient is alert, oriented, and in no acute distress Neuro: Median, Ulnar, Radial nerves motor and sensory intact and sensation is normal to the tips of all digits Vascular: Cap refill brisk ROM: He can make a fist and extend all his digits He can make a tight fist with good strength and no pain. He is now no longer tender over the triquetrum. No tenderness over the scapholunate interval No snuffbox or scaphoid tubercle tenderness No tenderness in the fovea, over the ECU or the DRUJ. The DRUJ is stable on exam and he has full prono-supination without pain or instability He can bring his wrist into active extension and hold it against resistance with no pain Wrist ROM: Pronation: Full and symmetrical Supination: Full and symmetrical Flexion: Nearly full and symmetrical but with some discomfort on the right side with full flexion Extension: Nearly full and symmetrical but again with some discomfort on the right side with full extension Skin: No lacerations or abrasions or evidence of open fracture General: No Ecchymosis. No Erythema or evidence of infection. Radiographs: 3 views of the right wrist from 09/03/25 were reviewed by me today in clinic. They show [ ] Right wrist MRI: Findings: There is bone marrow edema in the triquetrum. A triquetral fracture is seen on the prior radiographs. There is edema in the adjacent soft tissues. Bone marrow signal is otherwise normal. The musculature is normal in signal and bulk. Normal vessels. No ulnar variance. The distal radioulnar joint is congruent. There is no carpal instability. Small carpal joint effusion. Moderate-sized distal radioulnar joint effusion. The scapholunate and lunotriquetral ligaments are intact. There is increased signal in the triangular fibrocartilage complex; there is a small amount of fluid and increased signal within the triangular ligament. There is linear increased signal within the extensor carpi ulnaris tendon with increased fluid in the tendon sheath and adjacent edema within the soft tissues. There is increased fluid within the tendon sheaths of extensor digiti minimi, extensor digitorum and indicis, extensor pollicis longus, extensor carpi radialis longus and brevis. Normal carpal tunnel, median nerve, flexor retinaculum, flexor tendons and Guyon canal. There is edema in the subcutaneous fat superficial to the flexor retinaculum. Intact first carpometacarpal, scaphotrapezotrapezoidal and pisiform-triquetral joints. Mild joint space narrowing and osteophytosis of the 1st carpometacarpal joint, degenerative. Impression: Triquetral fracture. Small carpal joint effusion. Moderate-sized distal radioulnar joint effusion. Injury to the triangular fibrocartilage complex, posttraumatic, with a small amount of fluid and sprain versus partial tear of the triangular ligament. Split tear of extensor carpi ulnaris with tenosynovitis. Extensor tendon tenosynovitis, detailed above. This document has been electronically signed by: Nicolasa Lawrence MD on 09/14/2025 Psych Appearance: grossly normal Affect: normal affect Attitude: cooperative Office Procedures AMB Fracture Care Details: Fracture care right triquetrum [id number] Fracture Billing Code: Fracture Billing Code Assessment & Plan Assessment & Plan (1) Right radial head fracture: Code(s): S52.121A - Displaced fracture of head of right radius, initial encounter for closed fracture Category: Medical (2) Fracture of greater trochanter of right femur: Code(s): S72.111A - Displaced fracture of greater trochanter of right femur, initial encounter for closed fracture Category: Medical (3) Fracture of triquetrum of right wrist: Code(s): S62.111A - Displaced fracture of triquetrum [cuneiform] bone, right wrist, initial encounter for closed fracture Category: Medical (4) Stiffness of right wrist joint: Code(s): M25.631 - Stiffness of right wrist, not elsewhere classified Category: Medical Plan Assessment & Plan: 1. Right Triquetral fracture 2. Right radial head fracture 3. Right ECU tenosynovitis & partial split tear, S/P fall, DOI: 08/18/25 This is a workplace injury 4. Right wrist stiffness I educated him about these conditions and reviewed his MRI with him I discussed treatment options All in all I think he is healing very well. The triquetral fracture is healing well in his no longer tender. The ECU tenosynovitis and partial split tear all healing well and is no longer tender and there is no longer pain with resisted wrist extension. There is no scapholunate tear. I recommend he work on ROM exercises. He will continue to wear his wrist splint while at work, and with outside activities, but should discontinue this when at home to work on range of motion. He will work on ROM exercises at home, out of his splint. He should start to use his hand for light & medium weight activities. He should limit or avoid any heavy impact activities or falls for the next 4 weeks. 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 He was given a note for work to return to light duty with a 5lb weight limit and time off for OT hand therapy for the next 4 weeks, effective 10/16/25, IF he is also cleared for his radial head & hip fractures. He will follow up in 4-6 weeks for a ROM check, anticipate return to full duty 5. Right hip fracture This is being managed by ROXANE Arias for Monique Melgoza MD by Joe Husain biomedical equipment technician, on 10/10/25 at 9:25 AM, EST. Coding Level of Care Code Est Pt Level 4 (35177) Diagnoses Right radial head fracture S52.121A Fracture of greater trochanter of right femur S72.111A Fracture of triquetrum of right wrist S62.111A Stiffness of right wrist joint M25.631 CPT Codes Fracture Care - Fracture Billing Code: Fracture Billing Code ([id number])
[2025-10-10 09:03] VITALS: BMI 21.1
--- OUTSIDE RECORDS SUMMARY | 2025-10-10 09:27 | XMS_ITS | Encounter Summary ---
Author Organization [employer] Address [address] [place] [address] [address] [place] [address] Care Team Providers Care Roll Machine Operator Name Role Phone Unavailable Primary Care Provider Unavailabl e Encounter Details Date Type Department Care Team (Latest Contact Info) Description 05/08/2022 Abstract [facility] CONVERSIONS Dental, Provider, DDS Social History [...]
--- OUTSIDE RECORDS SUMMARY | 2025-10-10 09:27 | XMS_ITS | Clinical Summary ---
Author Organization [employer] Address [address] [place] [address] [address] [place] [address] Care Team Providers Care Line Puller Name Role Phone Unavailable Primary Care Provider [...] 3-dose series) 2002 COVID-19 Vaccine ( - 2024-2 6 season) 2025 Influenza Vaccine (#1) 2025 Zoster [...]
== END 2025-10-10 09:59 | disposition home or self-care (01) ==
LOC: HO.HOS 08:53
PROVIDERS: Visit Provider Orthopaedic Surgery
DX: S52.121A Displaced fracture of head of right radius, initial encounter for closed fracture (principal); S72.111A Displaced fracture of greater trochanter of right femur, initial encounter for closed fracture; S62.111A Displaced fracture of triquetrum [cuneiform] bone, right wrist, initial encounter for closed fracture; M25.631 Stiffness of right wrist, not elsewhere classified
CPT/HCPCS: 99214

== ENCOUNTER → 2025-10-10 08:53 | Outpatient (BNVA) | payer OTHER, SELFPAY | PROVIDERS: Visit Provider Orthopaedic Surgery | DX: S52.121A Displaced fracture of head of right radius, initial encounter for closed fracture (principal); S72.111A Displaced fracture of greater trochanter of right femur, initial encounter for closed fracture; S62.111A Displaced fracture of triquetrum [cuneiform] bone, right wrist, initial encounter for closed fracture; M25.631 Stiffness of right wrist, not elsewhere classified; W11.XXXA Fall on and from ladder, initial encounter; Y92.89 Other specified places as the place of occurrence of the external cause; Y93.89 Activity, other specified; Y99.0 Civilian activity done for income or pay | CPT/HCPCS: 99212 ==

== ENCOUNTER 2025-10-11 08:07 | Outpatient (REF) | payer OTHER, SELFPAY ==
--- NOTE | ~2025-10-11 | XR_ITS ---
EXAMINATION: XR HIP, RIGHT CLINICAL INFORMATION: M25.551 - Pain in right hip COMPARISON: X-ray 09/01/2025 , CT 09/09/2025 TECHNIQUE: Two views of the right hip. FINDINGS: Fracture of the proximal superior pubic ramus, seen on the CT scan of 09/09/2025, is not clearly visible on the x-ray. There is some callus/new bone formation this region. There is a nondisplaced fracture of the inferior pubic ramus with callus/new bone formation . Gas and stool projected over the sacrum and coccyx limiting evaluation. Bilateral hip joint space is maintained. Mild symphysis pubis degeneration. SI joints are symmetric. Bowel gas and stool projected over the sacrum/coccyx, limiting evaluation. XR/XR hip RT min 2V IMPRESSION: 1. Nondisplaced inferior pubic ramus fracture with callus/new bone formation. 2. Previously demonstrated superior pubic ramus fracture is not clearly visualized on x-ray, with faint callus/new bone formation visible on the x-ray. Electronically signed by: Milind Neville MD 10/11/2025 01:52 PM [facility]
== END 2025-10-11 08:08 | disposition home or self-care (01) ==
LOC: HO.HOSX 08:07
DX: S32.511D Fracture of superior rim of right pubis, subsequent encounter for fracture with routine healing (principal); X58.XXXD Exposure to other specified factors, subsequent encounter
CPT/HCPCS: 73502; 99212

== ENCOUNTER 2025-10-11 08:48 | Outpatient (AMB) | payer OTHER, SELFPAY ==
[2025-10-11 09:03] VITALS: BMI 21.1
--- NOTE | 2025-10-11 09:03 | A.OFFVIS_ITS ---
Vital Signs 10/11/25 09:03 Height 6 ft 1 in Weight 160 lb BMI 21.1 Intake Visit Reasons: CT scan review of hip Intake Note: Noble is a 39 year old male who presents today for a CT Review status post Nondisplaced Right Greater Trochanteric Fracture, DOI: 08/18/25. Patient report he is doing well. He experiences occasional pain when twisting or doing rough movements. He is not taking anything for pain at this time. IMPRESSION 09/09/25: The examination demonstrates a fracture of the proximal superior pubic ramus. There is a small amount of radiodense material adjacent to the fracture site suggesting that the fracture most suggestive of bony callus formation and a more remote injury. I do not believe it represents acute hemorrhage. Allergies No Known Allergies Allergy (Verified 10/11/25 09:09) HPI HPI CT scan review of hip: Details: Noble is a 39 year old male who presents today for a CT Review status post Nondisplaced Right Greater Trochanteric Fracture, WC DOI: 08/18/25. Patient report he is doing well. He experiences occasional pain when twisting or doing rough movements. He is not taking anything for pain at this time. Patient states that he has been trying to be nonweightbearing as much as possible, however there has been times where he has had to weightbear, and usually this is with minimal difficulty. Overall, patient states he feels he is recovering quite well overall from his injury, and he feels he is well on the road to a good recovery. IMPRESSION 09/09/25: The examination demonstrates a fracture of the proximal superior pubic ramus. There is a small amount of radiodense material adjacent to the fracture site suggesting that the fracture most suggestive of bony callus formation and a more remote injury. I do not believe it represents acute hemorrhage. 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 Review of Systems Const All systems reviewed & are unremarkable except as noted in HPI and below Physical Exam Vital Signs: BMI result Body Mass Index 21.1 Extrem Other: Patient's right wrist, elbow, hip normal to inspection No erythema, ecchymosis, edema noted No lacerations, abrasions, open areas No evidence of infection Patient reports minimal tenderness to palpation of the lateral aspect of the right hip Patient reports moderate to severe tenderness to palpation of the right wrist over the scapholunate interval Patient is able to straight leg raise the right lower extremity off of the bed in an extended position with very minimal discomfort While patient is supposed to be nonweightbearing, the patient does bear weight on the right lower extremity over the course of visit and interview Distal sensation intact Capillary refill brisk Office Procedures AMB Fracture Care Fracture Billing Code: Fracture Billing Code Results Reviewed Results Reviewed: X-rays obtained in the office today and independently reviewed by me, David Lindsay PA-C, demonstrate subtle area of lucency in the superior pubic ramus that has likely training representative of the fracture seen on CT scan, nondisplaced. Assessment & Plan Assessment & Plan (1) Fracture of right superior pubic ramus: Code(s): S32.511A - Fracture of superior rim of right pubis, initial encounter for closed fracture Category: Medical Plan 1. Right superior pubic ramus fracture, nondisplaced Date of injury 08/18/2025 Patient appears to be recovering well from his injury Patient is educated about the typical recovery course Patient is advised that for a further month, he should be nonweightbearing in the right lower extremity Patient is given a work note excusing him for this reason Patient is advised that in a month, we can explore returning him back to a weight-bearing status in the right lower extremity Patient is advised that full weight-bearing on the right leg can result in fracture displacement, and this is not advisable Patient is advised to continue using crutches if he does need to get around Patient understands this and is amenable to this plan Follow-up in 1 month for reassessment, sooner with any acute concerns Orders: Orders XR hip RT min 2V Today M25.551 - Pain in right hip Coding Level of Care Code Est Pt Level 3 (83843) Diagnoses Fracture of right superior pubic ramus S32.511A CPT Codes Fracture Care - Fracture Billing Code: Fracture Billing Code ([id number])
--- OUTSIDE RECORDS SUMMARY | 2025-10-11 09:13 | XMS_ITS | Clinical Summary ---
Author Organization [employer] Address [address] [place] [address] [address] [place] [address] Care Team Providers Care Associate Manager Affiliate Marketing Name Role Phone Unavailable Primary Care Provider [...]
--- OUTSIDE RECORDS SUMMARY | 2025-10-11 09:13 | XMS_ITS | Encounter Summary ---
Author Organization [employer] Address [address] [place] [address] [address] [place] [address] Care Team Providers Care Medical Technologist Chief Name Role Phone Unavailable Primary Care Provider Unavailabl e Encounter Details Date Type Department Care Team (Latest Contact Info) Description 05/08/2022 Abstract [facility] CONVERSIONS Dental, Provider, DDS Social History [...]
== END 2025-10-11 09:22 | disposition home or self-care (01) ==
LOC: HO.HOS 08:49
DX: S32.511A Fracture of superior rim of right pubis, initial encounter for closed fracture (principal)
CPT/HCPCS: 99213

== ENCOUNTER → 2025-10-11 08:51 | Outpatient (BNV) | payer OTHER, SELFPAY | PROVIDERS: Visit Provider Radiology Diagnostic Ultrasound | DX: S32.501A Unspecified fracture of right pubis, initial encounter for closed fracture (principal) | CPT/HCPCS: 73502 ==

== ENCOUNTER 2025-11-10 07:59 | Outpatient (REF) | payer OTHER, SELFPAY ==
--- NOTE | ~2025-11-10 | XR_ITS ---
EXAMINATION: XR HIP, RIGHT CLINICAL INFORMATION: M25.551 - Pain in right hip COMPARISON: X-ray 10/11/2025 TECHNIQUE: Two views of the right hip. Pelvis [address] hip 09/09/2025 FINDINGS: Fracture of the proximal right superior pubic ramus seen on the prior CT scan is not clearly visible on x-ray. Stable alignment of the right inferior pubic ramus fracture with callus/new bone formation. Bilateral hip joint spaces are preserved. No new acute fracture or dislocation.. No suspicious bony lesion. Mild symphysis pubis degeneration. SI joints are preserved. No abnormal soft tissue calcification. XR/XR hip RT min 2V IMPRESSION: 1. Healing changes in the right inferior pubic ramus fracture. 2. The proximal right superior pubic ramus fracture is not clearly visualized. Electronically signed by: Milind Neville MD 11/10/2025 03:41 PM EST
--- OUTSIDE RECORDS SUMMARY | 2025-11-10 08:03 | XMS_ITS | Encounter Summary ---
Author Organization [employer] Address [address] [place] [address] [address] [place] [address] Care Team Providers Care Windmill Technician Name Role Phone Unavailable Primary Care Provider Unavailabl e Encounter Details Date Type Department Care Team (Latest Contact Info) Description 05/08/2022 Abstract [facility] CONVERSIONS Dental, Provider, DDS Social History Tobacco [...]
--- OUTSIDE RECORDS SUMMARY | 2025-11-10 08:03 | XMS_ITS | Clinical Summary ---
Author Organization [employer] Address [address] [place] [address] [address] [place] [address] Care Team Providers Care Basketball Scout Name Role Phone Unavailable Primary Care Provider [...]
== END 2025-11-10 08:00 | disposition home or self-care (01) ==
LOC: HO.HOSX 07:59
DX: S32.511D Fracture of superior rim of right pubis, subsequent encounter for fracture with routine healing (principal); S32.591D Other specified fracture of right pubis, subsequent encounter for fracture with routine healing; X58.XXXD Exposure to other specified factors, subsequent encounter
CPT/HCPCS: 73502

== ENCOUNTER 2025-11-10 09:13 | Outpatient (AMB) | payer OTHER, SELFPAY ==
--- NOTE | 2025-11-10 09:20 | MHC.OFFVIS ---
Vital Signs 11/10/25 09:22 Height 6 ft 1 in Weight 160 lb BMI 21.1 Intake Visit Reasons: OV-Right hip pain Intake Note: Noble is a 39 year old male who presents today for a Follow Up visit status post Nondisplaced Right Greater Trochanteric Fracture, WC DOI: 08/18/25. Patient was advised to remain non-weightbearing for a month, using crutches when moving around. A work note was provided to excuse him for this reason. Today, patient reports he is doing well. He has been ambulating without any pain. Patient would like to discuss his return to work status. Allergies No Known Allergies Allergy (Verified 11/10/25 09:22) HPI HPI OV-Right hip pain: Details: Noble is a 39 year old male who presents today for a Follow Up visit status post Nondisplaced Right Greater Trochanteric Fracture, WC DOI: 08/18/25. Patient was advised to remain non-weightbearing for a month, using crutches when moving around. A work note was provided to excuse him for this reason. Today, patient reports he is doing well. He has been ambulating without any pain. Patient would like to discuss his return to work status. 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 Review of Systems Const All systems reviewed & are unremarkable except as noted in HPI and below Physical Exam Vital Signs: BMI result Body Mass Index 21.1 Extrem Other: Patient's right hip normal to inspection No erythema, ecchymosis, edema noted No lacerations, abrasions, open areas No evidence of infection Patient reports no tenderness to palpation of the lateral aspect of the right hip Patient is able to straight leg raise the right lower extremity off of the bed in an extended position with no discomfort Distal sensation intact Capillary refill brisk Assessment & Plan Assessment & Plan (1) Fracture of right superior pubic ramus: Code(s): S32.511A - Fracture of superior rim of right pubis, initial encounter for closed fracture Category: Medical (2) Fracture of right inferior pubic ramus: Code(s): S32.591A - Other specified fracture of right pubis, initial encounter for closed fracture Category: Medical Plan 1. Right superior pubic ramus fracture, nondisplaced Date of injury 08/18/2025 Patient appears to be recovering well from his injury Patient is educated about the typical recovery course Patient may begin weight-bearing on the right lower extremity Patient is given a work note stating he should be given frequent sitting breaks and the opportunity to get off of the right lower extremity if it bothers him persistently Patient is advised to continue using crutches if he does need to get around Patient understands this and is amenable to this plan Follow-up in 6 weeks for reassessment, sooner with any acute concerns Orders: Orders XR hip RT min 2V Today M25.551 - Pain in right hip PT Evaluation and Treatment Today S32.511A - Fracture of superior rim of right pubis, initial encounter for closed fracture, S32.591A - Other specified fracture of right pubis, initial encounter for closed fracture Coding Level of Care Code Global (16302) Diagnoses Fracture of right superior pubic ramus S32.511A Fracture of right inferior pubic ramus S32.591A
[2025-11-10 09:22] VITALS: BMI 21.1
== END 2025-11-10 09:45 | disposition home or self-care (01) ==
LOC: HO.HOS 09:14
DX: S32.511A Fracture of superior rim of right pubis, initial encounter for closed fracture (principal); S32.591A Other specified fracture of right pubis, initial encounter for closed fracture
CPT/HCPCS: 99213

== ENCOUNTER → 2025-11-10 09:18 | Outpatient (BNV) | payer OTHER, SELFPAY | PROVIDERS: Visit Provider Radiology Diagnostic Ultrasound | DX: S32.501D Unspecified fracture of right pubis, subsequent encounter for fracture with routine healing (principal) | CPT/HCPCS: 73502 ==